=== PATIENT | female | born 1955 | race Caucasian/White ===

== ENCOUNTER 2016-07-06 11:48 | Emergency (ER) | payer MEDICAID ==
[~2016-07-06 11:48] MED LIST: ALPRAZOLAM1 MG PO; AMBIEN CR12.5 MG/BO; AMBIEN10 MG; AMBIEN10 MG PO; AMITRIPTYLINE100 M1 PO; ANTIVERT25 MG PO; ARAVA20 M1 PO; ASPIR-LOW81 M1 PO; ATARAX25 MG PO; ATENOLOL100 M1 PO; ATENOLOL50 MG; ATENOLOL50 MG PO; BACTRIM DS1 TAB PO; CALCIUM + VITA1 EACH PO; CARBAMAZEPINE300 M1 PO; CARBATROL200 MG PO; CIPRO500 MG/5 M; CITALOPRAM HBR40 MG; CLINDAMYCIN HC150 MG; CYCLOBENZAPRINE10 M1 PO; CYCLOBENZAPRINE10 MG PO; CYMBALTA30 M1 PO; CYMBALTA60 M1 PO; DARVOCET-N 1001 TAB PO; DIAZEPAM5 M2 PO; DICLOFENAC SODI75 MG; DIFLUCAN200 MG; FENOFIBRATE134 MG PO; FENOFIBRATE145 M2 PO; FISH OIL 1,0001 CA PO; FISH OIL 1,0001 CAP; FLEXERIL10 MG; FLUOXETINE HCL40 MG PO; FOLIC ACID1 M1 PO; FOLIC ACID1 MG; FOLIC ACID1 MG PO; GLIMEPIRIDE2 MG PO; GLUCOPHAGE XR500 M1 PO; GLUCOPHAGE850 MG; HYDRALAZINE HCL25 M1 PO; HYDROXYZINE HCL25 M1 PO; IMODIUM A-D2 M3 PO; KLONOPIN1 MG; LAMICTAL; LAMICTAL200 M2 PO; LEFLUNOMIDE20 MG PO; LIPITOR80 M1 PO; LOVENOX40 MG/0.1 SC; METFORMIN HCL850 MG PO; METHOTREXATE2.5 MG; METHOTREXATE25 MG/ML IJ; NICOTINE PATCH1 EACH TD; NORCO 5-325 TA1 EACH PO; NORTRIPTYLIHNE25 MG; NORVASC10 M2 PO; NYSTATIN1 EAC9 TOP; OMEPRAZOLE20 M3 PO; PATCH REMOVAL; PERCOCET 5-3251 EACH PO; PRAVACHOL40 MG; PRILOSEC20 MG; PRINIVIL20 M1 PO; PROAIR HFA8.5 GM INH; PROZAC20 MG PO; REMICADE100 MG IV; REMICADE100 MG/VIA; REMICADE100 MG/VIA IV; REXULTI0.5 MG PO; ROBAXIN-750750 M1 PO; TEGRETOL XR200 M1 PO; TEGRETOL200 MG PO; TRAZODONE HCL50 M1 PO; TRIAMTERENE-HCT1 TAB; TRICOR145 M2 PO; TRICOR145 MG; TRILIPIX135 M1 PO; TRILIPIX135 MG PO; TYLENOL325 M2 PO; VALIUM10 M1 PO; VENTOLIN HFA18 G2 INH; VITAMIN D250000 UNI1 PO; VITAMIN D50000 UNIT PO; WELLBUTRIN XL300 MG; XANAX1 MG PO; [UNRECOGNIZED DRUG - OTHER]
[2016-07-06] MEDS ORDERED: PRISTIQ ER100 MG PO (12:14)
[2016-07-06] MEDS ORDERED: TRILIPIX135 M1 PO (12:17)
[2016-07-06] MEDS ORDERED: CARBATROL300 M1 PO (12:18)
[2016-07-06] MEDS ORDERED: HYDRALAZINE HCL10 M1 PO (12:23)
[2016-07-06] MEDS ORDERED: HYDROXYZINE HCL25 M1 PO (12:24)
[2016-07-06] MEDS ORDERED: AMBIEN10 M1 PO (13:20)
[2016-07-06] MEDS ORDERED: VALIUM5 M1 PO (13:21)
[2016-07-06] MEDS ORDERED: XANAX1 M1 PO (13:21)
[2016-07-06] MEDS ORDERED: ULTRAM50 M1 PO (13:25)
[2016-07-06] MEDS ORDERED: NEURONTIN800 M1 PO (13:25)
[2016-07-06] MEDS ORDERED: CYCLOBENZAPRINE10 M1 PO (13:26)
[2016-07-06] MEDS ORDERED: PREDNISONE20 M1 PO (13:37)
[2016-07-06] MEDS ORDERED: PERCOCET 5-3251 EACH PO (13:37)
[2016-07-06] MEDS ORDERED: CYCLOBENZAPRINE5 M1 PO (13:37)
== END 2016-07-06 14:11 ==
LOC: EDMED 11:48
DX: M54.5 Low back pain (principal); E11.9 Type 2 diabetes mellitus without complications; I10 Essential (primary) hypertension; Z86.73 Personal history of transient ischemic attack (TIA), and cerebral infarction without residual deficits; F31.9 Bipolar disorder, unspecified; J44.9 Chronic obstructive pulmonary disease, unspecified; J45.909 Unspecified asthma, uncomplicated; M19.90 Unspecified osteoarthritis, unspecified site; M06.9 Rheumatoid arthritis, unspecified; F17.200 Nicotine dependence, unspecified, uncomplicated; Z79.51 Long term (current) use of inhaled steroids; Z79.899 Other long term (current) drug therapy
CPT/HCPCS: J2270; J2360